=== PATIENT | male | born 1965 | race Caucasian/White ===

== ENCOUNTER 2017-05-08 12:59 | Emergency (ER) | payer SELFPAY ==
[~2017-05-08] VITALS: Ht 160 cm; Wt 72.6 kg
[2017-05-08 13:36] VITALS: BP 117/76
== END 2017-05-08 16:01 | disposition home or self-care (01) ==
LOC: ER 13:02
DX: M25.511 Pain in right shoulder (principal); X50.0XXA Overexertion from strenuous movement or load, initial encounter; Y93.89 Activity, other specified; Y92.89 Other specified places as the place of occurrence of the external cause; Y99.8 Other external cause status
CPT/HCPCS: 73030; 99284; A4606; Z7610